=== PATIENT | male | born 1985 | race Caucasian/White ===

== ENCOUNTER → 2016-07-29 | Outpatient (CLI) | payer OTHER, BC ==
--- NOTE | 2016-07-29 11:46 | US ---
EXAMINATION TYPE: US abdomen complete DATE OF EXAM: 07/29/2016 11:26 AM COMPARISON: NONE CLINICAL HISTORY: R10.9 ABDOMINAL PAIN. RUQ pain, NPO EXAM MEASUREMENTS: Liver Length: 14.3 cm Gallbladder Wall: 0.2 cm CHD: 0.4 cm Spleen: 12.2 cm Right Kidney: 10.7 x 6.4 x 5.5 cm Left Kidney: 11.8 x 6.2 x 5.8 cm Findings: Pancreas: Main pancreatic duct= 0.3 cm. Head and tail not well seen due to overlying bowel gas Liver: wnl Gallbladder: fold seen LLD, wnl as visualized Evidence for sonographic Keith's sign: neg CHD: wnl Spleen: wnl Right Kidney: wnl Left Kidney: wnl Upper IVC: seen Abd Aorta: mid not seen due to overlying bowel gas The liver is homogenous. The intrahepatic portion of the IVC and proximal abdominal aorta are within normal limits. There is no evidence of cholelithiasis. Common bile duct is unremarkable. The visu alized portions of the pancreas are homogenous. The spleen is unremarkable. Kidneys are symmetric a nd free of hydronephrosis. No renal lesions are seen. IMPRESSION: No distinct abnormality seen.
== END ==
LOC: RADUSWWP 10:50
PROVIDERS: ATTEND Family Medicine
DX: R10.9 Unspecified abdominal pain (principal)
CPT/HCPCS: 76700

== ENCOUNTER 2017-12-29 17:39 | Emergency (ER) | payer BC, OTHER ==
[2017-12-29] MEDS ORDERED: SODIUM CHLORIDE 0.9% 1,000 ML IV STA (19:13)
--- NOTE | 2017-12-29 19:19 | ED ---
Extremity Problem HPI - General Chief complaint: Extremity Problem,Nontraumatic Stated complaint: Knee Pain/fever Time Seen by Provider: 12/29/17 19:01 Source: patient, RN notes reviewed Mode of arrival: ambulatory Limitations: no limitations - History of Present Illness Initial comments: This is a 32-year-old male who presents to the emergency department with chief complaint of right knee pain and fever. Patient states that yesterday he felt like he had the flu. He states that he felt nauseous and developed a fever. He also complains of a headache. He states that when he woke up this morning his right knee was painful, swollen and red. He states that he presented to Dr. Steven's office. He states that Dr. Steven told him he was worried about septic arthritis. He states that Dr. Steven gave him injections of an antibiotic as well as a steroid and discharged him home with Keflex and a steroid. Patient states that Dr. Steven 1 him to follow up with him in the morning, however things worsened to come to the emergency department. Patient states that he is noticed no improvement in his knee. He states that he is having difficulty bearing weight and going up stairs due to the pain. Patient states that he tries to flex his knee feels like it is "going to explode." Patient also reports having cellulitis to the right lower extremity. This year. He denies any medical issues and states he takes no medications other than ibuprofen 800. Denies chest pain or shortness of breath, abdominal pain, vomiting or diarrhea, weakness, numbness or tingling. - Related Data Home Medications Medication Instructions Recorded Confirmed Vtiover-Wuhn-Wsqm [id number] 1 - 2 tab PO Q4HR PRN 12/29/17 12/29/17 [Excedrin] Cephalexin [Keflex] 1,000 mg PO BID 12/29/17 12/29/17 Ibuprofen [Motrin Ib] 200 - 400 mg PO Q6H PRN 12/29/17 12/29/17 methylPREDNISolone [Medrol Dose See Taper PO DIRECTED 12/29/17 12/29/17 Pack] Allergies Allergy/AdvReac Type Severity Reaction Status Date / Time No Known Allergies Allergy Verified 12/29/17 19:01 Review of Systems ROS Statement: Those systems with pertinent positive or pertinent negative responses have been documented in the HPI. ROS Other: All systems not noted in ROS Statement are negative. Past Medical History Past Medical History: No Reported History History of Any Multi-Drug Resistant Organisms: None Reported Additional Past Surgical History / Comment(s): club feet surgery Past Psychological History: No Psychological Hx Reported Smoking Status: Never smoker Past Alcohol Use History: Occasional Past Drug Use History: None Reported General Exam - General Exam Comments Initial Comments: General: Awake and alert, well-developed; in no apparent distress. HEENT: Head atraumatic, normocephalic. Pupils are equal, round and reactive to light. Extraocular movements intact. Oropharynx moist without erythema or exudate. Neck: Supple. Normal ROM. Cardiovascular: Regular rate and rhythm. No murmurs, rubs or gallops. Chest symmetrical. Respiratory: Lungs clear to auscultation bilaterally. No wheezes, rales or rhonchi. Normal respiratory effort with no use of accessory muscles. Musculoskeletal: Limited range of motion with flexion of the right knee due to pain. There is erythema, warmth and swelling noted to the right knee. Sensation is intact. Pedal pulses are 2+ equal and palpable bilaterally. Skin: [place], warm and dry without rashes. Neurological: Alert and oriented x3. CN II-XII grossly intact. Speech is fluent and answers are appropriate. No focal neuro deficits. Psychiatric: Normal mood and affect. No overt signs of depression or anxiety noted. Limitations: no limitations Course Vital Signs 12/29/17 12/29/17 18:01 21:09 Temperature 99.5 F 98.0 F Pulse Rate 90 76 Respiratory 20 18 Rate Blood Pressure 134/85 123/57 O2 Sat by Pulse 100 98 Oximetry Medical Decision Making - Medical Decision Making This is a 32-year-old male who presents to the emergency department with chief complaint of right knee pain and fever. Patient seen by Dr. Steven this morning and was started on oral antibiotics. He was told to present to the emergency department if symptoms worsened. Patient states that pain in range of motion of the right knee has gotten worse throughout the day. He states that he feels nauseous, has a headache and has had fevers. On physical examination, patient has limited range of motion with flexion of the right knee due to pain. There is erythema, tenderness and swelling to the right knee. Patient is neurovascularly intact. White blood cell count is slightly elevated at 11.9 with a left shift. CRP is 220. Patient will be admitted to Dr. Clayton with consult to orthopedics for rule out of septic arthritis. Patient started on vancomycin and Rocephin. Patient is in agreement for admission. At this time, vital signs are stable. Patient is in no acute distress. - Lab Data Result diagrams: 12/29/17 19:29 12/29/17 19:29 Lab Results 12/29/17 12/29/17 12/29/17 Range/Units 19:29 19:29 19:29 WBC 11.9 H (3.8-10.6) k/uL RBC 5.11 (4.30-5.90) m/uL Hgb 15.9 (13.0-17.5) gm/dL Hct 46.0 (39.0-53.0) % MCV 90.0 (80.0-100.0) fL MCH 31.1 (25.0-35.0) pg MCHC 34.6 (31.0-37.0) g/dL RDW 12.6 (11.5-15.5) % Plt Count 221 (150-450) k/uL Neutrophils % 89 % Lymphocytes % 6 % Monocytes % 3 % Eosinophils % 0 % Basophils % 0 % Neutrophils # 10.6 H (1.3-7.7) k/uL Lymphocytes # 0.7 L (1.0-4.8) k/uL Monocytes # 0.4 (0-1.0) k/uL Eosinophils # 0.1 (0-0.7) k/uL Basophils # 0.0 (0-0.2) k/uL Sodium 138 (137-145) mmol/L Potassium 4.3 (3.5-5.1) mmol/L Chloride 104 (98-107) mmol/L Carbon Dioxide 24 (22-30) mmol/L Anion Gap 10 mmol/L BUN 12 (9-20) mg/dL Creatinine 0.90 (0.66-1.25) mg/dL Est GFR (CKD-EPI)AfAm >90 (>60 ml/min/1.73 sqM) Est GFR (CKD-EPI)NonAf >90 (>60 ml/min/1.73 sqM) Glucose 149 H (74-99) mg/dL Plasma Lactic Acid Tab 1.2 (0.7-2.0) mmol/L Calcium 9.5 (8.4-10.2) mg/dL Total Bilirubin 1.6 H (0.2-1.3) mg/dL AST 33 (17-59) U/L ALT 48 (21-72) U/L Alkaline Phosphatase 56 (38-126) U/L C-Reactive Protein 220.1 H (<10.0) mg/L Total Protein 7.5 (6.3-8.2) g/dL Albumin 4.4 (3.5-5.0) g/dL Disposition Clinical Impression: Cellulitis of right knee, Fever Disposition: ADMITTED IP TO THIS HOSP Condition: Good Is patient prescribed a controlled substance at d/c from ED?: No Referrals: Arcadio Steven MD [Primary Care Provider] - 1-2 days Time of Disposition: 21:17
[2017-12-29 19:46] LABS: Basophils % (A) 0 %; Eosinophils # (A) 0.1 k/uL (0-0.7); Eosinophils % (A) 0 %; HGB 15.9 gm/dL (13.0-17.5); Lymphocytes # (A) 0.7 k/uL (1.0-4.8); Lymphocytes % (A) 6 %; MCH 31.1 pg (25.0-35.0); MCHC 34.6 g/dL (31.0-37.0); Mean Platelet Volume 6.8; Monocytes # (A) 0.4 k/uL (0-1.0); Monocytes % (A) 3 %; Neutrophils # (A) 10.6 k/uL (1.3-7.7); Neutrophils % (A) 89 %; Platelet Count 221 k/uL (150-450); RBC 5.11 m/uL (4.30-5.90); RDW 12.6 % (11.5-15.5); WBC 11.9 k/uL (3.8-10.6)
[2017-12-29 20:04] LABS: ALT 48 U/L (21-72); AST 33 U/L (17-59); Albumin 4.4 g/dL (3.5-5.0); Alkaline Phosphatase 56 U/L (38-126); Anion Gap 10 mmol/L; Blood Urea Nitrogen 12 mg/dL (9-20); Calcium 9.5 mg/dL (8.4-10.2); Carbon Dioxide 24 mmol/L (22-30); Chloride 104 mmol/L (98-107); Glucose 149 mg/dL (74-99); Potassium 4.3 mmol/L (3.5-5.1); Sodium 138 mmol/L (137-145); Total Bilirubin 1.6 mg/dL (0.2-1.3); Total Protein 7.5 g/dL (6.3-8.2)
[2017-12-29 20:17] LABS: C Reactive Protein 220.1 mg/L (<10.0)
[2017-12-29] MEDS ORDERED: VANCOMYCIN IV PER PHARMACY 1 EACH MISC MISCELLANE PRN (21:02)
[2017-12-29] MEDS ORDERED: VANCOMYCIN 1,750 MG in SODIUM CHLORIDE 0.9% 500 ML IVPB STA (21:06)
[2017-12-29] MEDS: cefTRIAXone IN SWFI 1,000 MG/10 ML SYRINGE IVP SCH (21:14)
[2017-12-29] MEDS ORDERED: IBUPROFEN 400 MG TAB PO PRN (21:20)
[2017-12-29] MEDS: SODIUM CHLORIDE 0.9% 1,000 ML IV SCH (21:50)
[2017-12-30] MEDS: SODIUM CHLORIDE 0.9% 1,000 ML IV SCH ×2 (08:47→17:48)
[2017-12-30] MEDS: VANCOMYCIN 1,750 MG in SODIUM CHLORIDE 0.9% 500 ML IVPB SCH ×3 (08:48→23:54)
[2017-12-30] MEDS: KETOROLAC 30 MG/ML 1 ML VIAL IVP PRN (11:23)
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
--- NOTE | 2017-12-30 13:13 | XR ---
EXAMINATION TYPE: XR knee complete RT DATE OF EXAM: 12/30/2017 COMPARISON: None HISTORY: Knee pain, swelling TECHNIQUE: Three-view right knee with mobile apparatus FINDINGS: Tiny tibial plateau spurs are present. Joint spaces appear preserved. No joint effusion is evident. No acute fractures are evident. Follow-up exams can be performed 7-10 days from acute trauma for continued pain. IMPRESSION: 1. Unremarkable right knee
[2017-12-30 13:41] VITALS: BMI 33.7
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
[2017-12-30] MEDS: NAPROXEN 250 MG TAB PO SCH (19:27)
[2017-12-30] MEDS: ENOXAPARIN 40 MG/0.4 ML SYRINGE SQ SCH (19:28)
[2017-12-30] MEDS: cefTRIAXone IN SWFI 1,000 MG/10 ML SYRINGE IVP SCH (21:26)
[2017-12-31] MEDS: SODIUM CHLORIDE 0.9% 1,000 ML IV SCH ×3 (05:57→23:26)
[2017-12-31 08:07] LABS: Anion Gap 6 mmol/L; Blood Urea Nitrogen 16 mg/dL (9-20); Calcium 8.8 mg/dL (8.4-10.2); Carbon Dioxide 26 mmol/L (22-30); Chloride 108 mmol/L (98-107); Glucose 100 mg/dL (74-99); Potassium 4.6 mmol/L (3.5-5.1); Sodium 140 mmol/L (137-145)
[2017-12-31 08:11] LABS: Basophils % (A) 0 %; Eosinophils # (A) 0.1 k/uL (0-0.7); Eosinophils % (A) 1 %; HGB 13.2 gm/dL (13.0-17.5); Lymphocytes # (A) 1.9 k/uL (1.0-4.8); Lymphocytes % (A) 23 %; MCH 31.2 pg (25.0-35.0); MCHC 33.9 g/dL (31.0-37.0); MCV 92.2 fL (80.0-100.0); Mean Platelet Volume 7.6; Monocytes # (A) 0.4 k/uL (0-1.0); Monocytes % (A) 5 %; Neutrophils # (A) 5.4 k/uL (1.3-7.7); Neutrophils % (A) 68 %; Platelet Count 202 k/uL (150-450); RBC 4.23 m/uL (4.30-5.90); RDW 12.8 % (11.5-15.5); WBC 7.9 k/uL (3.8-10.6)
[2017-12-31] MEDS: VANCOMYCIN 1,750 MG in SODIUM CHLORIDE 0.9% 500 ML IVPB SCH ×3 (08:24→23:25)
[2017-12-31] MEDS: NAPROXEN 250 MG TAB PO SCH ×2 (08:25→20:01)
[2017-12-31] MEDS: ENOXAPARIN 40 MG/0.4 ML SYRINGE SQ SCH (08:25)
[2017-12-31] MEDS: cefTRIAXone IN SWFI 2,000 MG/20 ML SYRINGE IVP SCH (11:43)
--- NOTE | 2017-12-31 13:36 | P.PN ---
Subjective Progress Note Date: 12/31/17 Principal diagnosis: Right knee bursitis/cellulitis Patient is a pleasant 32-year-old male seen at bedside this morning. We are following for right knee cellulitis/bursitis. I ordered x-rays and he has been on IV antibiotics including vancomycin per infectious disease. He has also had a compressive wrap on his right knee and elevation. He feels he is a little improved today. He does not currently have fever or chills. He has no calf pain, chest pain, shortness breath, numbness, tingling or other. Objective - Vital Signs Vital signs: Vital Signs Temp 97.5 F L 12/31/17 05:59 Pulse 64 12/31/17 07:55 Resp 18 12/31/17 07:55 BP 127/63 12/31/17 05:59 Pulse Ox 97 12/31/17 05:59 Intake & Output 12/30/17 12/31/17 12/31/17 18:59 06:59 18:59 Intake Total 500 Balance 500 Weight 106.594 kg Intake: Intake, IV Titration 500 Amount Vancomycin 1,750 mg In 500 Sodium Chloride 0.9% 500 ml @ 167 mls/hr IVPB Q8HR [facility] Rx#:[id number] Other: Voiding Method Toilet Toilet # Voids 2 1 - Exam Inspection of the right lower extremity shows mild erythema that appears stable or improved at the right patella and superficial knee. There is mild to moderate soft tissue edema and tenderness at the area of the prepatellar and infrapatellar bursa.. There does not appear to be a definite joint effusion. No abscess or fluctuance is noted. He has full extension with no pain. He has flexion to 90 which reproduces anterior knee pain. The calf is soft and nontender. Knee is ligamentously stable. There is no joint line tenderness. There is normal patellar tracking. Neurovascular status is intact fully with motor and sensation throughout the right lower extremity. 2+ dorsalis pedis pulse present and less than 2 second capillary refill is present. - Constitutional General appearance: Present: no acute distress - Psychiatric Psychiatric: Present: A&O x's 3, appropriate affect, intact judgment & insight - Labs CBC & Chem 7: 12/31/17 07:06 12/31/17 07:06 Labs: Abnormal Lab Results - Last 24 Hours (Table) 12/31/17 12/31/17 Range/Units 07:06 07:06 RBC 4.23 L (4.30-5.90) m/uL Chloride 108 H (98-107) mmol/L Glucose 100 H (74-99) mg/dL Microbiology - Last 24 Hours (Table) 12/29/17 19:29 Blood Culture - Preliminary Blood No Growth after 24 hours - Imaging and Cardiology X-rays of the right knee are reviewed and show no evidence of fracture or dislocation. There is no evidence of significant fluid collection or effusion Assessment and Plan (1) Cellulitis of right knee Narrative/Plan: X-rays are relatively benign. He is currently afebrile. His white blood cell count is trending down and is currently normal. He doesn't appear to have a definitive joint effusion and this is more likely superficial bursitis/ cellulitis. Recommend continued IV antibiotic therapy as well as compression and elevation above heart. We will continue to monitor his status closely and make further recommendations as appropriate. Current Visit: Yes Status: Acute Priority: Medium Code(s): L03.115 - CELLULITIS OF RIGHT LOWER LIMB SNOMED Code(s): 63995147 Time with Patient: Less than 30
[2017-12-31] MEDS: KETOROLAC 30 MG/ML 1 ML VIAL IVP PRN (18:21)
--- NOTE | 2017-12-31 22:16 | PN ---
PROGRESS NOTE DATE OF SERVICE: 12/31/2017 PRESENTING COMPLAINT: Right knee painful swelling. INTERVAL HISTORY: This patient presented with what appears to be acute cellulitis of the right knee. Some pain and swelling is decreased. The patient is tolerating a diet. There have been no fevers, getting antibiotics. Per Orthopedics, joint does not need to be drained. REVIEW OF SYSTEMS: Done for constitutional, cardiovascular, GI, pulmonary; relevant findings as above. CURRENT MEDICATIONS: Include: 1. IV ceftriaxone and. 2. Vancomycin. EXAMINATION: Temperature 97.8, pulse 57, respirations 18, blood pressure 127/69, pulse ox 97% on room air. GENERAL APPEARANCE: Sitting up, more comfortable. EYES: Pupils equal. Conjunctivae normal. HEENT: External nose and ears normal. Oral cavity normal. NECK: JVD not raised. Mass not palpable. RESPIRATORY: Effort normal. Lungs are clear. CARDIOVASCULAR: First and second sounds normal. No edema. ABDOMEN: Soft, nontender. Liver and spleen not palpable. PSYCHIATRY: Alert and oriented x3. Mood and affect normal. MUSCULOSKELETAL: Right knee pain, swelling, redness has all gone down a bit. Better movement at the knee. DERMATOLOGICAL: Right foot has a break in the heel pad with a thick callus. INVESTIGATIONS: White count 7.9. Potassium 4.6. Blood cultures negative. ASSESSMENT: 1. Acute cellulitis of the right knee with improvement. Fevers down, white count is coming down. On clinical exam, the knee appears to be better. 2. Gastroesophageal reflux disease. 3. Obesity, BMI 33.7. 4. Leukocytosis, improving. PLAN: Discussed with the patient to be up out of bed, weight bear as tolerated and advance starting to walk. Continue medications. Hopefully can be switched to oral antibiotics tomorrow. MMODL / IJN: [id number] /
[2018-01-01 06:21] VITALS: RESP 16
--- NOTE | 2018-01-01 06:29 | CONS ---
CONSULTATION DATE OF SERVICE: 12/31/2017 REASON FOR CONSULTATION: Right knee HISTORY OF PRESENT ILLNESS: The patient is a 32-year-old, male presenting to the ER at [facility] on 12/29/2017 with chief complaints of right knee pain and fever. Apparently the patient said that [place] the [place] and the day prior admitted to hospital, he started having generalized body aches, fever and chills. The patient did develop pain to the right knee area. The patient denies having any history of any trauma to the knee. He denies any wound his knee area with the knee becoming more swollen and red and painful. Pain is described as throbbing almost 7 to 8 out of 10, and no radiation. The patient did present to his primary care physician, Dr. Steven who apparently started him on some steroids and given oral Keflex, but the symptoms continued to get worse. Hence, he presented to the [facility] ER where the patient has been evaluated by the ER physician. The patient did have x-rays of the knee, which was unremarkable right knee. Patient has been evaluated by orthopedics and recommending to continue with the medical treatment. On arrival to the ER, the patient has been afebrile. The patient did have elevated white count of 11.9. White count this morning is normal. He did have elevated CRP. The patient has been started on vancomycin in the hospital. Infectious Disease was consulted for further recommendation regarding antibiotic therapy. REVIEW OF SYSTEMS: CONSTITUTIONAL: Positive for weakness along with chills. EYES: No complaint. ENT: No complaint. RESPIRATORY: No complaint. CARDIOVASCULAR: No complaint. GENITOURINARY: No complaint. GASTROINTESTINAL: No complaint. MUSCULOSKELETAL: As per HPI. INTEGUMENTARY: As per HPI. PSYCHOLOGICAL: No complaint. ENDOCRINE: No complaint. NEUROLOGIC: No complaint. PAST MEDICAL HISTORY: His past medical history is significant for hypertension, gastroesophageal reflux disease. Previous history of MRSA infection right arm. PAST SURGICAL HISTORY: Bilateral clubfeet surgery as an . SOCIAL HISTORY: Denies smoking, drinking or drug use. FAMILY HISTORY: Father history of coronary artery disease. Mother history of pancreatitis. ALLERGIES: No known drug allergies. MEDICATION: Medications currently include the patient is on Rocephin 1 gram daily. He is on Lovenox, Toradol, naproxen and vancomycin 1750 q.8 hours. PHYSICAL EXAMINATION: On examination, blood pressure 127/69 with pulse of 57, temperature 98. He is 97% on room air. General description is a middle aged male up in the room in no distress. No tachypnea or accessory muscle of respiration use. HEENT examination shows pallor. No scleral icterus. Oral mucous membrane is dry. No pharyngeal erythema or thrush. NECK: Trachea central. No thyromegaly. LUNGS: Unlabored breathing, clear to auscultation anteriorly. No wheeze or crackle. HEART: S1, S2. Regular rate and rhythm. No swelling. ABDOMEN: Soft, no tenderness. No guarding or rigidity. EXTREMITIES: No edema of feet. Examination of the right knee shows to be slightly swollen, slightly painful to touch, mostly in the right anterior knee area. No open area. No drainage. NEUROLOGICALLY: Patient is awake, alert, oriented x3. Mood and affect normal. LABS: Hemoglobin 13.2, white count 7.9, BUN of 16, creatinine 0.86. Electrolytes have been normal. Vancomycin trough is 17.8. Blood culture negative. DIAGNOSTIC IMPRESSION AND PLAN: Patient admitted to the hospital with acute knee pain, more likely right knee prepatellar bursitis. for underlying septic arthritis and more likely from a gram- positive skin kassy failing outpatient oral Keflex antibiotic therapy. PLAN: 1. We will discuss with Ortho if aspirate of the bursa will be advised as that can be sent for culture and that will guide antibiotic therapy. 2. The patient will be continued on vancomycin and will increase the Rocephin to 2 grams daily. 3. Will recommend ice and compression with Willian wrap to keep the swelling down. 4. We will follow up on clinical condition and culture to further adjust medication if needed. Thank you for this consultation. Will follow this patient along with you. MMODL / IJN: [id number] /
[2018-01-01 08:03] LABS: Anion Gap 5 mmol/L; Blood Urea Nitrogen 11 mg/dL (9-20); Calcium 8.6 mg/dL (8.4-10.2); Carbon Dioxide 26 mmol/L (22-30); Chloride 109 mmol/L (98-107); Glucose 86 mg/dL (74-99); Potassium 4.2 mmol/L (3.5-5.1); Sodium 140 mmol/L (137-145)
[2018-01-01] MEDS: ENOXAPARIN 40 MG/0.4 ML SYRINGE SQ SCH (08:15)
[2018-01-01] MEDS: NAPROXEN 250 MG TAB PO SCH (08:15)
[2018-01-01] MEDS: VANCOMYCIN 1,750 MG in SODIUM CHLORIDE 0.9% 500 ML IVPB SCH (08:15)
[2018-01-01] MEDS: cefTRIAXone IN SWFI 2,000 MG/20 ML SYRINGE IVP SCH (12:50)
[2018-01-01 15:31] VITALS: BP 127/73; PULSE 71; TEMP 97.8
--- NOTE | 2018-01-01 15:39 | P.PN ---
Subjective Progress Note Date: 01/01/18 Principal diagnosis: Right knee bursitis/cellulitis Patient is a pleasant 32-year-old male seen at bedside this morning. We are following for right knee cellulitis/bursitis. He has been on IV antibiotics including vancomycin per infectious disease. He feels he has continued to improve today. He does not currently have fever or chills. He has no calf pain , chest pain, shortness breath, numbness, tingling or other. Objective - Vital Signs Vital signs: Vital Signs Temp 97.8 F 01/01/18 15:29 Pulse 71 01/01/18 15:29 Resp 16 01/01/18 15:29 BP 127/73 01/01/18 15:29 Pulse Ox 97 01/01/18 15:29 Intake & Output 12/31/17 01/01/18 01/01/18 18:59 06:59 18:59 Intake Total 1700 2700 Balance 1700 2700 Weight 106.594 kg 106.594 kg Intake: Intake, IV Titration 900 1800 Amount Sodium Chloride 0.9% 1, 400 800 000 ml @ 100 mls/hr IV . Q10H [facility] Rx#:[id number] Vancomycin 1,750 mg In 500 1000 Sodium Chloride 0.9% 500 ml @ 167 mls/hr IVPB Q8HR [facility] Rx#:[id number] Oral 800 900 Other: Voiding Method Toilet Toilet # Voids 1 3 - Exam Inspection of the right lower extremity shows improved mild erythema at the right patella and superficial knee. There is mild soft tissue edema and tenderness at the area of the prepatellar and infrapatellar bursa. It is not hot to touch. There does not appear to be a definite joint effusion. No abscess or fluctuance is noted. He has full extension with no pain. He has flexion to 90 plus which reproduces improved anterior knee pain. The calf is soft and nontender. Knee is ligamentously stable. There is no joint line tenderness. There is normal patellar tracking. Neurovascular status is intact fully with motor and sensation throughout the right lower extremity. 2+ dorsalis pedis pulse present and less than 2 second capillary refill is present. - Constitutional General appearance: Present: no acute distress - Psychiatric Psychiatric: Present: A&O x's 3, appropriate affect, intact judgment & insight - Labs CBC & Chem 7: 12/31/17 07:06 01/01/18 07:06 Labs: Abnormal Lab Results - Last 24 Hours (Table) 01/01/18 Range/Units 07:06 Chloride 109 H (98-107) mmol/L Microbiology - Last 24 Hours (Table) 12/29/17 19:29 Blood Culture - Preliminary Blood No Growth after 48 hours Assessment and Plan (1) Cellulitis of right knee Narrative/Plan: He continues to show improvement. Recommend continued IV antibiotic therapy as well as compression and elevation above heart. We will continue to monitor his status closely and make further recommendations as appropriate. He may follow up with orthopedics as an outpatient. Current Visit: Yes Status: Acute Priority: Medium Code(s): L03.115 - CELLULITIS OF RIGHT LOWER LIMB SNOMED Code(s): 94503254 Time with Patient: Less than 30
--- NOTE | 2018-01-01 15:47 | PN ---
PROGRESS NOTE DATE OF SERVICE: 01/01/2018 REASON FOR FOLLOWUP: Right knee prepatellar bursitis. INTERVAL HISTORY: The patient is afebrile. He is currently feeling better, breathing comfortably. He did mention that his pain into the right knee is almost down to /10 compared to 1010 when he presented to hospital. The patient denies having any chest pain or shortness of breath or cough. No abdominal pain. No diarrhea. PHYSICAL EXAMINATION: Blood pressure 127/80 with a pulse of 54, temperature 97.4. He is 98% on room air. General description is a middle-aged male up in the room in no distress. RESPIRATORY SYSTEM: Unlabored breathing. Clear to auscultation anteriorly. HEART: S1, S2. Regular rate and rhythm. ABDOMEN: Soft. No tenderness. RIGHT KNEE: Minimal erythema, especially at the prepatellar bursal area, slightly tender to touch. LABS: No new labs have been obtained today. Blood culture has been negative. DIAGNOSTIC IMPRESSION AND PLAN: Patient with right knee prepatellar bursitis failing outpatient Keflex therapy. The patient seems to have shown clinical improvement. Will recommend finishing therapy with a combination of oral Keflex 500 mg q.6 along with doxycycline 100 b.i.d. for 10 days along with Willian wrap for support of the knee area and followup in the office in about a week. Plan of care was discussed with the admitting physician. Prescriptions were sent to the pharmacy. DANIEL / WANDA: [id number] /
--- NOTE | 2018-01-01 23:11 | DS ---
DISCHARGE SUMMARY DATE OF ADMISSION: 12/29/2017. DATE OF DISCHARGE: 01/01/2018. FINAL DIAGNOSES: 1. Acute severe cellulitis of the right knee. 2. Gastroesophageal reflux disease. 3. Obesity, body mass index 32.7. 4. Callus of the right foot. HOSPITAL COURSE: This patient presents presented with severe cellulitis of the right knee. Seen by Dr. Keith from Orthopedics. Did not feel the joint was affected. The patient was treated with antibiotics in the form of ceftriaxone and vancomycin. By the time of discharge he was greatly improved. Patient also received naproxen. On examination, patient is afebrile, blood pressure 127/73. Lungs are clear. Right knee pain and swelling greatly improved. Patient is able to ambulate. I discussed with Dr. Vidal from Infectious Disease, antibiotics were discussed. Discussion and discharge planning more than 35 minutes. DISCHARGE MEDICATIONS: 1. Excedrin p.r.n. 2. Keflex 500 mg every 6 hours, 40 capsules. 3. Doxycycline 100 mg every 12, 20 capsules. 4. Naproxen 500 mg p.o. b.i.d. 40 tablets. FOLLOWUP: 1. Follow up with Dr. Steven on 01/07/2018. 2. Follow up with Dr. Vidal on 01/09/2018. Patient may return to work next Friday. Discussion and discharge planning more than 35 minutes. , Dr. Steven. DANIEL / WANDA: [id number] /
== END 2018-01-01 16:35 | disposition home or self-care (01) ==
LOC: EC 17:39 → 5MS5E 21:20
PROVIDERS: ADMIT Hospitalist; ATTEND Hospitalist
DX: L03.115 Cellulitis of right lower limb (principal); R51 Headache; R11.0 Nausea; D72.829 Elevated white blood cell count, unspecified; Z79.52 Long term (current) use of systemic steroids; Z86.14 Personal history of Methicillin resistant Staphylococcus aureus infection
CPT/HCPCS: 99285; 96365; 96366 ×2; 96375; 96361; 36415; 80053; 80048 ×2; 85652; 83605; 85025 ×2; 80202; 86140; 87040; 73562; G0378 ×4; J3370 ×4; J0696 ×4; J1650 ×2; J1885 ×2

== ENCOUNTER → 2020-08-01 | Outpatient (CLI) | payer OTHER, BC ==
--- NOTE | 2020-08-01 08:57 | US ---
EXAMINATION TYPE: US liver DATE OF EXAM: 08/01/2020 COMPARISON: Ultrasound abdomen July 29, 2016 CLINICAL HISTORY: R94.5 abn liver function. Abnormal liver function EXAM MEASUREMENTS: Liver Length: 16.2 cm Gallbladder Wall: .2 cm CBD: .5 cm Right Kidney: 10.7 x 4.4 x 3.7 cm Pancreas: Obscured by bowel gas Liver: Increased attenuation Gallbladder: No stones seen Evidence for sonographic Keith's sign: No CBD: wnl Right Kidney: No hydronephrosis or masses seen Visualized pancreas unremarkable on initial images, portions of pancreas obscured by overlying bowel gas and images saved. Visualized liver is heterogeneously hyperechoic on current study slightly more prominent versus prior. No intrahepatic or extrahepatic biliary dilatation. Evaluation for focal mass es suboptimal due to the heterogeneity. No surrounding ascites. No shadowing mobile intraluminal gall stones in gallbladder. No right-sided hydronephrosis. IMPRESSION: Numerous more prominent increased attenuation of the liver could reflect diffuse fatty in filtration or less likely underlying hepatocellular disease. Patient may benefit with ultrasound elas tography and/or random biopsy to further evaluate if desired.
== END ==
LOC: RADUSWWP 07:41
PROVIDERS: ATTEND Family Medicine
DX: R94.5 Abnormal results of liver function studies (principal)
CPT/HCPCS: 76705

== ENCOUNTER → 2020-10-02 | Outpatient (CLI) | payer OTHER, BC ==
[2020-10-02 15:05] LABS: Basophils # (A) 0.03 X 10*3/uL (0.00-0.10); Basophils % (A) 0.6 %; Eosinophils # (A) 0.13 X 10*3/uL (0.04-0.35); Eosinophils % (A) 2.6 %; HCT 46.8 % (39.6-50.0); HGB 15.7 g/dL (13.0-17.0); Lymphocytes # (A) 1.57 X 10*3/uL (0.90-5.00); Lymphocytes % (A) 31.1 %; MCH 30.7 pg (27.0-32.0); MCHC 33.5 g/dL (32.0-37.0); MCV 91.6 fL (80.0-97.0); Mean Platelet Volume 10.5 fL (9.5-12.2); Monocytes # (A) 0.42 X 10*3/uL (0.20-1.00); Monocytes % (A) 8.3 %; Neutrophils # (A) 2.89 X 10*3/uL (1.80-7.70); Neutrophils % (A) 57.2 %; Platelet Count 239 X 10*3/uL (140-440); RBC 5.11 X 10*6/uL (4.40-5.60); RDW 11.9 % (11.5-14.5); WBC 5.05 X 10*3/uL (4.50-10.00)
[2020-10-02 16:03] LABS: INR 0.94 (0.90-1.11); Prothrombin Time 10.3 sec (9.9-11.9)
[2020-10-02 19:50] LABS: Hepatitis A Antibody IgM Non-Reactive (Non-Reactive); Hepatitis B Core IgM Non-Reactive (Non-Reactive); Hepatitis B Surface Antigen Non-Reactive (Non-Reactive); Hepatitis C IgG Antibody Non-Reactive (Non-Reactive)
[2020-10-03 03:20] LABS: Albumin 4.7 g/dL (3.80-4.90); Albumin/Globulin Ratio 2.24 (1.60-3.17); Bilirubin, Conjugated 0.4 mg/dL (0.20-0.40); Bilirubin,Unconjugated 1.2 mg/dL; Globulin 2.1 g/dL (1.6-3.3); Total Bilirubin 1.6 mg/dL (0.3-1.2); Total Protein 6.8 g/dL (6.2-8.2)
[2020-10-03 15:28] LABS: Ceruloplasmin 22.7 mg/dL (20.0-60.0)
== END | disposition home or self-care (01) ==
LOC: LABWHC1 08:18
PROVIDERS: ATTEND Physician Assistant
DX: K76.0 Fatty (change of) liver, not elsewhere classified (principal); R74.01 Elevation of levels of liver transaminase levels
CPT/HCPCS: 36415; 80074; 80076; 82390; 83516; 85025; 85610; 86038